=== PATIENT | female | born 1940 | race Two or more races ===

== ENCOUNTER 2018-08-03 08:31 | Outpatient (CLI) | payer OTHER ==
[~2018-08-03 08:31] MED LIST: DULCOLAX5 MG PO; LEVSINEX0.375 M1 PO
== END 2018-08-03 08:54 | disposition home or self-care (01) ==
LOC: MAMO-SONO 08:31
DX: N63.11 Unspecified lump in the right breast, upper outer quadrant (principal)

== ENCOUNTER 2019-08-05 07:59 | Outpatient (CLI) | payer OTHER | END 2019-08-05 08:07 | disposition home or self-care (01) | LOC: MAMO-SONO 07:59 | DX: Z12.31 Encounter for screening mammogram for malignant neoplasm of breast (principal); N60.11 Diffuse cystic mastopathy of right breast; N60.12 Diffuse cystic mastopathy of left breast; Z87.898 Personal history of other specified conditions; Z09 Encounter for follow-up examination after completed treatment for conditions other than malignant neoplasm ==

== ENCOUNTER 2020-08-07 08:40 | Outpatient (CLI) | payer OTHER | END 2020-08-07 08:43 | disposition home or self-care (01) | LOC: MAMO-SONO 08:40 | PROVIDERS: ATTEND Surgery | DX: Z12.31 Encounter for screening mammogram for malignant neoplasm of breast (principal); N60.11 Diffuse cystic mastopathy of right breast; N60.12 Diffuse cystic mastopathy of left breast ==

== ENCOUNTER → 2021-08-08 | Outpatient (CLI) | payer OTHER | END | disposition home or self-care (01) | LOC: MAMO-SONO 11:15 | PROVIDERS: ATTEND Surgery | DX: R92.1 Mammographic calcification found on diagnostic imaging of breast (principal); Z12.31 Encounter for screening mammogram for malignant neoplasm of breast; N60.11 Diffuse cystic mastopathy of right breast; N60.12 Diffuse cystic mastopathy of left breast ==

== ENCOUNTER 2022-09-02 10:28 | Outpatient (CLI) | payer OTHER | END 2022-09-02 10:37 | disposition home or self-care (01) | LOC: MAMO-SONO 10:28 | PROVIDERS: ATTEND Surgery | DX: N60.11 Diffuse cystic mastopathy of right breast (principal) ==

== ENCOUNTER 2023-09-04 07:21 | Outpatient (CLI) | payer OTHER | END 2023-09-04 07:28 | disposition home or self-care (01) | LOC: MAMO-SONO 07:21 | PROVIDERS: ATTEND Surgery | DX: N60.11 Diffuse cystic mastopathy of right breast (principal); N60.12 Diffuse cystic mastopathy of left breast; Z12.31 Encounter for screening mammogram for malignant neoplasm of breast ==

== ENCOUNTER 2024-09-07 07:20 | Outpatient (CLI) | payer OTHER | END 2024-09-07 07:29 | disposition home or self-care (01) | LOC: MAMO-SONO 07:20 | PROVIDERS: ATTEND Surgery | DX: N60.11 Diffuse cystic mastopathy of right breast (principal); N60.12 Diffuse cystic mastopathy of left breast; Z12.31 Encounter for screening mammogram for malignant neoplasm of breast ==

== ENCOUNTER 2025-09-08 07:26 | Outpatient (CLI) | payer OTHER | END 2025-09-08 07:34 | disposition home or self-care (01) | LOC: MAMO-SONO 07:26 | PROVIDERS: ATTEND Surgery | DX: N60.11 Diffuse cystic mastopathy of right breast (principal); N60.12 Diffuse cystic mastopathy of left breast; Z12.31 Encounter for screening mammogram for malignant neoplasm of breast ==

== ENCOUNTER 2025-09-26 07:46 | Outpatient (CLI) | payer OTHER | END 2025-09-26 07:49 | disposition home or self-care (01) | LOC: MAMO-SONO 07:46 | PROVIDERS: ATTEND Surgery | DX: N60.11 Diffuse cystic mastopathy of right breast (principal); N60.12 Diffuse cystic mastopathy of left breast ==